=== PATIENT | male | born 1985 | race Caucasian/White ===

== ENCOUNTER → 2023-05-06 | Outpatient (CLI) | payer BC ==
--- NOTE | 2023-05-09 08:30 | MR ---
EXAMINATION TYPE: MR brain wo/w con DATE OF EXAM: 05/06/2023 10:35 PM CLINICAL INDICATION:Male, 38 years old with history of Z86.79, History of subdural hematoma, headache s. Personal history of other diseases of the circulatory system COMPARISON: None TECHNIQUE: Multi planar, multi sequence imaging was performed through the brain including: T1, T2, In version recovery, susceptibility weighted imaging and gradient echo imaging and Diffusion weighted im aging. The patient was then given intravenous contrast and multi planar, T1 fat-saturation images wer e obtained. IV Contrast: 7 cc Gadavist FINDINGS: Anterior scalp hematoma does not enhance. Measuring up to 2.5 x 2.2 cm is high T1 signal and does not demonstrate postcontrast enhancement. The lee-white junctions, ventricular system, basal cisterns appear unremarkable. Diffusion-weighted imaging shows no evidence of restricted diffusion to suggest acute/subacute infarct. Intracranial art erial flow voids are maintained. Midline structures show no abnormality. Scattered foci of high T2 si gnal intensity are seen within the periventricular white matter. The susceptibility weighted images d o not reveal any evidence for micro-hemorrhage. After administration of gadolinium, no abnormal enhan cement is seen. The bone marrow signal is within normal limits. Paranasal sinuses and mastoid air cells: No significant paranasal sinus disease. Visualized orbits: Orbital contents are intact. IMPRESSION: 1. No evidence of intracranial mass, acute/subacute infarct, or abnormal enhancement. 2. Suspected anterior scalp hematoma.
== END | disposition home or self-care (01) ==
LOC: RADMRIMAIN 21:45
PROVIDERS: ATTEND Family Medicine
DX: R51.9 Headache, unspecified (principal); Z18.10 Retained metal fragments, unspecified; Z86.79 Personal history of other diseases of the circulatory system
CPT/HCPCS: 70553; A9585